=== PATIENT | female | born 1990 | race Hispanic/Latino ===

== ENCOUNTER 2021-11-09 14:37 | Outpatient (CLI) | payer OTHER | END 2021-11-09 14:38 | disposition home or self-care (01) | LOC: CSHLAB 14:37 | PROVIDERS: ATTEND Obstetrics & Gynecology | DX: Z20.822 Contact with and (suspected) exposure to COVID-19 (principal) | CPT/HCPCS: 87811 ==

== ENCOUNTER 2021-11-09 14:58 | Inpatient (IN) | payer OTHER ==
[~2021-11-09 14:58] MED LIST: Bupivacaine 0.25% HCL 30 ML VIAL ONE
[2021-11-09] MEDS ORDERED: hydrALAZINE 20 MG/ML VIAL SLOW IVP PRN ×3 (15:16→18:02)
[2021-11-09 15:44] VITALS: BMI 37.8
[2021-11-09] MEDS ORDERED: Ondansetron PF 4 MG/2 ML Vial IVP PRN ×2 (17:59→18:02)
[2021-11-09] MEDS ORDERED: Methylergonovine 0.2 MG/ML VIAL IM PRN (17:59)
[2021-11-09] MEDS ORDERED: Butorphanol Tartrate 1 MG/ML VIAL SLOW IVP PRN ×2 (17:59→18:02)
[2021-11-09] MEDS ORDERED: Carboprost 250 MCG/ML AMP IM PRN ×2 (17:59→18:02)
[2021-11-09] MEDS ORDERED: Lidocaine 1% (PF) 30 ML VIAL SC PRN ×2 (17:59→18:02)
[2021-11-09] MEDS ORDERED: Diphenoxylate HCl/Atropine Tablet PO PRN ×3 (17:59→18:02)
[2021-11-09] MEDS ORDERED: Misoprostol 200 MCG TAB PR PRN ×2 (17:59→18:02)
[2021-11-09] MEDS ORDERED: Promethazine HCl 25 MG/ML VIAL IM PRN ×2 (17:59→18:02)
[2021-11-09] MEDS ORDERED: NS w/ Oxytocin 30 units 500 ML IV SCH ×3 (18:00→18:15)
[2021-11-09] MEDS ORDERED: Ibuprofen 800 MG TAB PO PRN (18:02)
[2021-11-09] MEDS ORDERED: Acetaminophen 500 MG TAB PO PRN (18:02)
[2021-11-09] MEDS ORDERED: HYDROcodone/Acetaminophen 5/325 mg Tablet PO PRN (18:02)
[2021-11-09] MEDS ORDERED: Docusate 100 MG CAP PO PRN (18:02)
[2021-11-09 19:03] LABS: Hemoglobin 11.6 g/dL (12.0-15.5); Mean Corpuscular HGB CONC 33.3 g/dL (32.0-36.0); Mean Corpuscular Hemoglobin 28.9 pg (27.0-33.0); Mean Corpuscular Volume 86.6 fl (81.6-98.3); Mean Platelet Volume 11.4 fl (7.4-10.4); Platelet Count 238 10x3/uL (150-450); RBC Distribution Width 13.7 % (11.5-14.5); Red Blood Cell (RBC) Count 4.02 10x6/uL (3.90-5.03)
[2021-11-09 19:35] LABS: Hep B Surf Ag Non-Reactive S/CO (NonReactive); Syphilis Antibody Nonreactive (Nonreactive); Syphilis Antibody Index 0.06 S/CO (<1.00 Non-Reactive)
[2021-11-09 19:36] LABS: HBSAg Index 0.22 S/CO (0-0.99)
[2021-11-09] MEDS: Lactated Ringer's 1,000 ML IV SCH ×3 (20:08→23:30)
[2021-11-10] MEDS ORDERED: diphenhydrAMINE 25 MG CAP PO SCH (03:00)
[2021-11-10] MEDS ORDERED: Fentanyl 2 mcg/Bup 0.1% Cadd 100 ML ONE (09:20)
[2021-11-10] MEDS: NS w/ Oxytocin 30 units 500 ML IV SCH ×2 (09:30→15:20)
[2021-11-10] MEDS ORDERED: ePHEDrine Sulfate 50 MG/10 ML VIAL SLOW IVP PRN (10:20)
[2021-11-10] MEDS ORDERED: Naloxone HCl 0.4 mg/ml Vial IVP PRN ×2 (10:20)
[2021-11-10] MEDS ORDERED: Lactated Ringer's 500 ML IV PRN (10:20)
[2021-11-10] MEDS ORDERED: Moisturizing Cream (Eucerin) 113 GM JAR TOP PRN (10:20)
[2021-11-10] MEDS ORDERED: Promethazine HCl 25 MG/ML VIAL IM PRN ×2 (10:20→20:23)
[2021-11-10] MEDS ORDERED: Acetaminophen 325 MG TAB PO PRN (10:20)
[2021-11-10] MEDS ORDERED: Ondansetron PF 4 MG/2 ML Vial IVP PRN ×2 (10:20→20:23)
[2021-11-10] MEDS ORDERED: diphenhydrAMINE 50 MG/ML VIAL IVP PRN (10:20)
[2021-11-10] MEDS ORDERED: Communication Order-Pharmacy FS SCH (10:30)
[2021-11-10] MEDS ORDERED: Fentanyl 2 mcg/Bupivacaine 0.1% Cassette 100 ML EPIDURAL SCH (10:30)
[2021-11-10] MEDS: Lactated Ringer's 1,000 ML IV SCH ×3 (10:53→18:22)
[2021-11-10] MEDS ORDERED: NS w/ Oxytocin 30 units 500 ML ONE (20:03)
[2021-11-10] MEDS ORDERED: NS w/ Oxytocin 30 units 500 ML IV SCH (20:23)
[2021-11-10] MEDS ORDERED: Varicella virus, LIVE 0.5 ML VIAL SC ONE (20:23)
[2021-11-10] MEDS ORDERED: diphenhydrAMINE 25 MG CAP PO PRN (20:23)
[2021-11-10] MEDS ORDERED: Measles/Mumps/Rubella 10 MCG/0.5 ML VIAL SC ONE (20:23)
[2021-11-10] MEDS ORDERED: Lanolin Ointment 7 GM TUBE TOP PRN (20:23)
[2021-11-10] MEDS ORDERED: Benzocaine-Menthol 82.5 ML CAN TOP PRN (20:23)
[2021-11-10] MEDS ORDERED: Milk Of Magnesia 30 ML UDCUP PO PRN (20:23)
[2021-11-10] MEDS ORDERED: Bisacodyl 10 MG SUPP PR PRN (20:23)
[2021-11-10] MEDS ORDERED: Zolpidem Tartrate 5 MG TAB PO PRN (20:23)
[2021-11-10] MEDS ORDERED: hydrALAZINE 20 MG/ML VIAL SLOW IVP PRN (20:23)
[2021-11-10] MEDS ORDERED: Misoprostol 200 MCG TAB VAG PRN (20:23)
[2021-11-10] MEDS ORDERED: HYDROcodone/Acetaminophen 5/325 mg Tablet PO PRN (20:23)
[2021-11-10] MEDS ORDERED: Preparation H Ointment 28 GM TUBE PR PRN (20:23)
[2021-11-10] MEDS ORDERED: Boostrix 0.5 ML (Tdap) VIAL IM ONE (20:23)
[2021-11-10] MEDS: Docusate 100 MG CAP PO SCH (20:42)
[2021-11-10] MEDS ORDERED: Ibuprofen 800 MG TAB PO SCH (22:00)
[2021-11-11] MEDS: Ibuprofen 800 MG TAB PO SCH ×3 (00:18→14:02)
[2021-11-11 05:40] LABS: Hemoglobin 9.2 g/dL (12.0-15.5); Mean Corpuscular HGB CONC 32.3 g/dL (32.0-36.0); Mean Corpuscular Hemoglobin 28.8 pg (27.0-33.0); Mean Corpuscular Volume 89.1 fl (81.6-98.3); Mean Platelet Volume 12.1 fl (7.4-10.4); Platelet Count 184 10x3/uL (150-450); RBC Distribution Width 13.5 % (11.5-14.5); White Blood Cell (WBC) Count 8.1 10x3/uL (3.5-10.5)
[2021-11-11] MEDS: Lactated Ringer's 1,000 ML IV SCH (07:23)
[2021-11-11] MEDS: Ferrous Sulfate 325 MG TAB PO SCH ×2 (07:52→15:43)
[2021-11-11] MEDS: Docusate 100 MG CAP PO SCH (07:52)
[2021-11-11] MEDS ORDERED: Prenatal Vitamin 1 TAB PO SCH (09:00)
[2021-11-11 11:25] VITALS: BP 120/59; TEMP 98.6
== END 2021-11-11 17:05 | disposition home or self-care (01) | DRG 807 ==
LOC: CSHLD/OP 14:58 → CSHLD 18:30 → CSHPP 11-10 16:20
PROVIDERS: ADMIT Obstetrics & Gynecology; ATTEND Obstetrics & Gynecology
PROC: 10E0XZZ Delivery of Products of Conception, External Approach (ICD-10-PCS; principal; 2021-11-10)
DX: O36.8130 Decreased fetal movements, third trimester, not applicable or unspecified (principal); Z37.0 Single live birth; Z3A.36 36 weeks gestation of pregnancy; Z90.49 Acquired absence of other specified parts of digestive tract; Z20.822 Contact with and (suspected) exposure to COVID-19
CPT/HCPCS: 36415; 51702; 76819; 85027; 86780; 86850; 86900; 86901; 87340; 87811; 99285; J2590; J7120; S0020